=== PATIENT | male | born 1980 | race Caucasian/White ===

== ENCOUNTER 2016-11-06 15:22 | Emergency (ER) | payer OTHER ==
[~2016-11-06] VITALS: Ht 177.8 cm; Wt 82.0 kg
[2016-11-06 15:37] VITALS: BP 106/69; PULSE 67; RESP 20; TEMP 98.6; O2SAT 100
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
[2016-11-06] MEDS ORDERED: ROBA750T PO (20:25)
[2016-11-06] MEDS ORDERED: IBUP800T23 PO (20:25)
[2016-11-06] MEDS ORDERED: KETOROLAC TROMETHAMINE 60 MG/2 ML (IM) VIAL IM ONE (20:30)
[2016-11-06] MEDS ORDERED: ORPHENADRINE INJ 60 MG/2 ML AMP IM ONE (20:30)
[2016-11-06] MEDS ORDERED: KETOROLAC TROMETHAMINE 30 MG/ML (IVP) VIAL IV PUSH ONE (21:30)
== END 2016-11-06 21:42 | disposition home or self-care (01) ==
LOC: NEPD 15:22
DX: S09.90XA Unspecified injury of head, initial encounter (principal); S16.1XXA Strain of muscle, fascia and tendon at neck level, initial encounter; V49.40XA Driver injured in collision with unspecified motor vehicles in traffic accident, initial encounter
CPT/HCPCS: 70450; 72125; 96372; 96374; 99285; J1885; J2360; L0150